=== PATIENT | female | born 1990 | race Caucasian/White ===

== ENCOUNTER 2017-12-13 19:09 | Emergency (ER) | payer MEDICAID ==
[2017-12-13] MEDS: ACETAMINOPHEN 325 MG TAB PO (22:03)
[2017-12-13 22:07] LABS: URINE BLOOD (Dip) POC 3+ (NEGATIVE); URINE GLUCOSE (Dip) POC Negative (NEGATIVE); URINE KETONES (Dip) POC Trace (NEGATIVE); URINE LEUKOCYTE EST (Dip) POC Negative (NEGATIVE); URINE NITRITE (Dip) POC Negative (NEGATIVE); URINE TOTAL PROTEIN POC 1+ (NEGATIVE)
[2017-12-13 22:07] LABS: URINE PH (Dip) POC 5.5 (5.0-8.5)
== END 2017-12-14 01:00 | disposition home or self-care (01) ==
LOC: FTE 12-14 01:00
DX: D25.9 Leiomyoma of uterus, unspecified (principal); N93.9 Abnormal uterine and vaginal bleeding, unspecified; R40.2412 Glasgow coma scale score 13-15, at arrival to emergency department
CPT/HCPCS: 76830; 76856; 81003; 81025; 87591; 99284-25